=== PATIENT | male | born 1955 | race African-American/Black ===

== ENCOUNTER 2021-11-18 14:46 | Inpatient (IN) | payer SELFPAY ==
[~2021-11-18] VITALS: Ht 175.3 cm; Wt 48.5 kg
[2021-11-18] MEDS ORDERED: MIDAZOLAM HCL 2 MG/2 ML VIAL IV ONE (15:00)
[2021-11-18] MEDS ORDERED: PROPOFOL 10MG/ML 100ML 100 ML IV ONE ×2 (15:00→18:30)
[2021-11-18] MEDS ORDERED: ETOMIDATE 2MG/ML 10ML VIAL IV ONE (15:00)
[2021-11-18 15:25] LABS: BASOPHILS % 0.5 % (0.0-2.0); EOSINOPHILS % 0.2 % (0.0-5.0); HEMATOCRIT. 43.5 % (42.0-52.0); HEMOGLOBIN. 13.9 g/dL (14.0-18.0); LYMPHOCYTES % 18.3 % (20.0-50.0); MEAN CORPUSCULAR HEMOGLOBIN 32.9 pg (28.0-32.0); MEAN CORPUSCULAR VOLUME 103.2 fL (80.0-94.0); MEAN PLATELET VOLUME 7.9 fl (7.4-10.4); MONOCYTES % 11.8 % (2.0-8.0); NEUTROPHILS % 69.2 % (40.0-76.0); PLATELET 394 x1000/uL (130-400); RED BLOOD CELL COUNT 4.22 mill/uL (4.7-6.1); RED CELL DISTRIBUTION WIDTH 14.9 % (11.6-14.6)
[2021-11-18 15:27] LABS: CHLORIDE 96 mEq/L (98-107)
[2021-11-18 15:30] LABS: PROTHROMBIN TIME 10.5 sec (9.6-11.0)
[2021-11-18 15:46] LABS: CREATINE KINASE 234 IU/L (39-308); ETHANOL BLOOD < 10 mg/dL
[2021-11-18 16:15] LABS: BG BASE EXCESS -4.8 mmol/L (-2.0-2.0); BG CARBOXYHEMOGLOBIN 0.6 % (0.5-1.5); BG DEOXYHEMOGLOBIN 1.8 % (0.0-5.0); BG HCO3 ACT 21.5 mmol/L (22.0-26.0); BG METHEMOGLOBIN 0.6 % (0.0-1.5); BG OXYGEN SATURATION 98.2 % (92.0-98.5); BG PCO2 44.1 mmHg (35.0-45.0); BG PH 7.305 (7.350-7.450); BG PO2 132.8 mmHg (75.0-100.0); BG SAMPLE SITE RIGHT BRACHIAL; BG TOTAL HEMOGLOBIN 14.9 g/dL (12.0-18.0); BG VENT MODE VENT - AC
[2021-11-18 17:14] LABS: CLARITY URINE TURBID (CLEAR); COLOR URINE YELLOW (YELLOW); KETONES URINE NEGATIVE (NEGATIVE); LEUKOCYTE ESTERASE URINE NEGATIVE (NEGATIVE); NITRITE URINE NEGATIVE (NEGATIVE); OCCULT BLOOD URINE 2+ (NEGATIVE); PROTEIN URINE 3+ (NEGATIVE); UROBILINOGEN URINE 0.2 E.U./dL (0.2-1.0)
[2021-11-18] MEDS: LACTULOSE 20G/30ML UDC PO SCH ×2 (17:16→22:00)
[2021-11-18 17:33] LABS: *AMPHETAMINES SCREEN URINE NEGATIVE (NEGATIVE); *BARBITURATES SCREEN URINE NEGATIVE (NEGATIVE); *BENZODIAZEPINES SCREEN URINE PRESUMTIVE POSITIVE (NEGATIVE); *COCAINE SCREEN URINE NEGATIVE (NEGATIVE); CANNABINOID URINE SCREEN PRESUMTIVE POSITIVE (NEGATIVE); METHADONE URINE SCREEN NEGATIVE (NEGATIVE); OPIATES URINE SCREEN NEGATIVE (NEGATIVE); PHENCYCLIDINE URINE SCREEN NEGATIVE (NEGATIVE)
[2021-11-18] MEDS ORDERED: MIDAZOLAM HCL 100 MG in SODIUM CHLORIDE 0.9% 80 ML IV NR (18:00)
[2021-11-18] MEDS ORDERED: MIDAZOLAM HCL 100 MG in DEXT 5% WATER 80 ML IV ONE (18:00)
[2021-11-18] MEDS ORDERED: ACETAMINOPHEN 650MG SUPP PR STA (18:26)
[2021-11-18] MEDS ORDERED: VANCOMYCIN 1G PREMIX 200 ML IV NR (18:30)
[2021-11-18] MEDS ORDERED: VANCOMYCIN 1G PREMIX 200 ML IV ONE (18:30)
[2021-11-18] MEDS ORDERED: PROPOFOL 200MG/20ML VIAL IV PRN (18:30)
[2021-11-18] MEDS ORDERED: PIPERACILLIN/TAZ 3.375G PREMIX 50 ML IV ONE (18:30)
[2021-11-18] MEDS ORDERED: CLONIDINE 0.1MG TABLET PO PRN (21:45)
[2021-11-18] MEDS ORDERED: ONDANSETRON HCL 4MG/2ML INJ IV PRN (21:45)
[2021-11-18] MEDS ORDERED: DOCUSATE SODIUM 100MG CAPSULE PO PRN (21:45)
[2021-11-18] MEDS ORDERED: ACETAMINOPHEN 325MG TABLET PO PRN (21:45)
[2021-11-18] MEDS ORDERED: HYDROCODONE/ACETAMINOPHEN 5/325MG TABLET PO PRN (21:45)
[2021-11-18] MEDS ORDERED: CEFTRIAXONE SODIUM 1 G/VIAL IM SCH (21:55)
[2021-11-18] MEDS: SODIUM CHLORIDE 0.9% 1,000 ML IV SCH (22:00)
[2021-11-18] MEDS ORDERED: VANCOMYCIN 1GM PMX (XELLIA) 200 ML IV NR (22:00)
[2021-11-18] MEDS ORDERED: LACTULOSE 20G/30ML UDC PO SCH (22:00)
[2021-11-18] MEDS: ENOXAPARIN 40MG/0.4ML SYR SUBCUT SCH (22:01)
[2021-11-19] VITALS (78 sets, daily range): BP systolic 85–175; BP diastolic 58–132
[2021-11-19] MEDS: MORPHINE SULFATE 2 MG/ML CPJ (NOT FOR IM USE) IV PRN (03:40)
[2021-11-19] MEDS: PROPOFOL 10MG/ML 100ML 100 ML IV PRN ×4 (04:47→21:05)
[2021-11-19 05:02] LABS: BG BASE EXCESS -1.6 mmol/L (-2.0-2.0); BG CARBOXYHEMOGLOBIN 0.3 % (0.5-1.5); BG DEOXYHEMOGLOBIN 0.2 % (0.0-5.0); BG FRACTION INSPIRED OXYGEN 100; BG HCO3 ACT 22.6 mmol/L (22.0-26.0); BG METHEMOGLOBIN 0.2 % (0.0-1.5); BG OXYGEN SATURATION 99.8 % (92.0-98.5); BG OXYHEMOGLOBIN 99.3 % (94.0-97.0); BG PCO2 36.8 mmHg (35.0-45.0); BG PH 7.407 (7.350-7.450); BG PO2 479.3 mmHg (75.0-100.0); BG SAMPLE SITE RIGHT RADIAL; BG TOTAL HEMOGLOBIN 14.5 g/dL (12.0-18.0); BG VENT MODE VENT - AC
[2021-11-19] MEDS ORDERED: FENTANYL CITRATE/PF 2,500 MCG in SODIUM CHLORIDE 0.9% 200 ML IV PRN (05:30)
[2021-11-19] MEDS ORDERED: MIDAZOLAM 100MG/100ML PMX 100 ML IV PRN (05:30)
[2021-11-19 05:58] LABS: HEMATOCRIT. 42.6 % (42.0-52.0); HEMOGLOBIN. 13.9 g/dL (14.0-18.0); MEAN CORPUSCULAR HEMOGLOBIN 31.8 pg (28.0-32.0); MEAN CORPUSCULAR VOLUME 97.7 fL (80.0-94.0); MEAN PLATELET VOLUME 7.6 fl (7.4-10.4); PLATELET 298 x1000/uL (130-400); RED BLOOD CELL COUNT 4.36 mill/uL (4.7-6.1); RED CELL DISTRIBUTION WIDTH 14.4 % (11.6-14.6)
[2021-11-19 06:24] LABS: CHLORIDE 101 mEq/L (98-107)
[2021-11-19 06:28] LABS: PHOSPHORUS 5.4 mg/dL (2.5-4.9)
[2021-11-19] MEDS: LACTULOSE 20G/30ML UDC PO SCH ×3 (07:21→21:02)
[2021-11-19] MEDS: FOLIC ACID 1MG TABLET PO SCH (08:21)
[2021-11-19] MEDS ORDERED: POTASSIUM CHLORIDE 20MEQ TABLET SR PO SCH (09:00)
[2021-11-19] MEDS ORDERED: POTASSIUM CHLORIDE 20MEQ/PACKET PO SCH (10:00)
[2021-11-19] MEDS ORDERED: NALOXONE HCL 0.4MG/ML VIAL IV PRN (11:00)
[2021-11-19] MEDS ORDERED: LEVETIRACETAM 500MG PREMIX 100 ML IV SCH (12:00)
[2021-11-19] MEDS ORDERED: PROPOFOL 10MG/ML 100ML 100 ML IV PRN (12:15)
[2021-11-19] MEDS ORDERED: IPRATROPIUM/ALBUTEROL 0.5-3(2.5)MG/3ML NEB HHN PRN (12:15)
[2021-11-19 12:20] LABS: PLATELET ESTIMATE NORMAL
[2021-11-19] MEDS ORDERED: FOLIC ACID 1MG TABLET PO SCH (13:00)
[2021-11-19] MEDS ORDERED: LEVETIRACETAM 1,000 MG in SODIUM CHLORIDE 0.9% 100 ML IV SCH (13:45)
[2021-11-19] MEDS: MULTIVITAMINS,THER W-MINERALS TABLET PO SCH (13:47)
[2021-11-19] MEDS: THIAMINE HCL 100MG TABLET PO SCH (13:47)
[2021-11-19] MEDS: CHLORDIAZEPOXIDE 5 MG CAPSULE PO SCH ×2 (14:06→21:03)
[2021-11-19] MEDS: PIPERACILLIN/TAZOBACTAM 3.375 G in DEXTROSE 5% WATER 50 ML IV SCH ×2 (14:06→21:04)
[2021-11-19] MEDS: SODIUM CHLORIDE 0.9% 1,000 ML IV SCH (14:44)
[2021-11-19] MEDS ORDERED: LEVETIRACETAM 1000MG PREMIX 100 ML IV SCH (15:00)
[2021-11-19] MEDS: IPRATROPIUM/ALBUTEROL 0.5-3(2.5)MG/3ML NEB HHN SCH (20:25)
[2021-11-19] MEDS: LEVETIRACETAM 1000MG PREMIX 100 ML IV SCH (21:00)
[2021-11-19] MEDS: ENOXAPARIN 40MG/0.4ML SYR SUBCUT SCH (21:03)
[2021-11-20] VITALS (69 sets, daily range): BP systolic 85–183; BP diastolic 46–102
[2021-11-20] MEDS: IPRATROPIUM/ALBUTEROL 0.5-3(2.5)MG/3ML NEB HHN SCH ×4 (01:03→20:50)
[2021-11-20] MEDS: PROPOFOL 10MG/ML 100ML 100 ML IV PRN (03:42)
[2021-11-20] MEDS: PIPERACILLIN/TAZOBACTAM 3.375 G in DEXTROSE 5% WATER 50 ML IV SCH ×3 (05:32→21:01)
[2021-11-20] MEDS: LEVOTHYROXINE SODIUM 25MCG TABLET PO SCH (05:32)
[2021-11-20] MEDS: CHLORDIAZEPOXIDE 5 MG CAPSULE PO SCH ×3 (05:32→21:00)
[2021-11-20] MEDS: LACTULOSE 20G/30ML UDC PO SCH ×3 (05:32→21:01)
[2021-11-20 05:40] LABS: BASOPHILS % 0.5 % (0.0-2.0); EOSINOPHILS % 0.9 % (0.0-5.0); HEMATOCRIT. 37.1 % (42.0-52.0); LYMPHOCYTES % 9.5 % (20.0-50.0); MEAN CORPUSCULAR HEMOGLOBIN 31.9 pg (28.0-32.0); MEAN CORPUSCULAR VOLUME 98.4 fL (80.0-94.0); MEAN PLATELET VOLUME 8.2 fl (7.4-10.4); MONOCYTES % 7.4 % (2.0-8.0); NEUTROPHILS % 81.7 % (40.0-76.0); PLATELET 271 x1000/uL (130-400); RED BLOOD CELL COUNT 3.78 mill/uL (4.7-6.1); RED CELL DISTRIBUTION WIDTH 14.4 % (11.6-14.6)
[2021-11-20 05:41] LABS: CHLORIDE 110 mEq/L (98-107)
[2021-11-20 05:51] LABS: CREATINE KINASE 296 IU/L (39-308)
[2021-11-20] MEDS: SODIUM CHLORIDE 0.9% 1,000 ML IV SCH (06:52)
[2021-11-20 07:51] LABS: BG BASE EXCESS -1.6 mmol/L (-2.0-2.0); BG CARBOXYHEMOGLOBIN 0.3 % (0.5-1.5); BG DEOXYHEMOGLOBIN 1.3 % (0.0-5.0); BG FRACTION INSPIRED OXYGEN 40; BG HCO3 ACT 21.6 mmol/L (22.0-26.0); BG METHEMOGLOBIN 0.6 % (0.0-1.5); BG OXYGEN SATURATION 98.7 % (92.0-98.5); BG OXYHEMOGLOBIN 97.8 % (94.0-97.0); BG PCO2 32.1 mmHg (35.0-45.0); BG PH 7.446 (7.350-7.450); BG PO2 143.6 mmHg (75.0-100.0); BG SAMPLE SITE RIGHT RADIAL; BG TOTAL HEMOGLOBIN 12.7 g/dL (12.0-18.0); BG VENT MODE VENT - AC
[2021-11-20] MEDS: THIAMINE HCL 100MG TABLET PO SCH (08:08)
[2021-11-20] MEDS: MULTIVITAMINS,THER W-MINERALS TABLET PO SCH (08:08)
[2021-11-20] MEDS: LEVETIRACETAM 1000MG PREMIX 100 ML IV SCH ×2 (08:09→21:00)
[2021-11-20] MEDS: FOLIC ACID 1MG TABLET PO SCH (08:09)
[2021-11-20] MEDS ORDERED: POTASSIUM CHLORIDE 20MEQ TABLET SR PO SCH (09:45)
[2021-11-20] MEDS ORDERED: ENOXAPARIN 30MG/0.3ML SYR SUBCUT SCH (21:00)
[2021-11-21] VITALS (39 sets, daily range): BP systolic 111–177; BP diastolic 59–97
[2021-11-21] MEDS: IPRATROPIUM/ALBUTEROL 0.5-3(2.5)MG/3ML NEB HHN SCH ×2 (02:27→09:34)
[2021-11-21] MEDS: MORPHINE SULFATE 2 MG/ML CPJ (NOT FOR IM USE) IV PRN (03:21)
[2021-11-21] MEDS: PIPERACILLIN/TAZOBACTAM 3.375 G in DEXTROSE 5% WATER 50 ML IV SCH ×2 (05:41→15:32)
[2021-11-21] MEDS: LACTULOSE 20G/30ML UDC PO SCH (05:42)
[2021-11-21] MEDS: LEVOTHYROXINE SODIUM 25MCG TABLET PO SCH (05:42)
[2021-11-21] MEDS: CHLORDIAZEPOXIDE 5 MG CAPSULE PO SCH (05:42)
[2021-11-21] MEDS ORDERED: KEPP500 MT (08:47)
[2021-11-21] MEDS: LEVETIRACETAM 1000MG PREMIX 100 ML IV SCH (09:35)
[2021-11-21] MEDS: FOLIC ACID 1MG TABLET PO SCH (09:36)
[2021-11-21] MEDS: THIAMINE HCL 100MG TABLET PO SCH (09:36)
[2021-11-21] MEDS: MULTIVITAMINS,THER W-MINERALS TABLET PO SCH (09:36)
[2021-11-21 09:48] LABS: BASOPHILS % 0.8 % (0.0-2.0); EOSINOPHILS % 0.7 % (0.0-5.0); HEMATOCRIT. 31.8 % (42.0-52.0); HEMOGLOBIN. 10.6 g/dL (14.0-18.0); MEAN CORPUSCULAR HEMOGLOBIN 32.8 pg (28.0-32.0); MEAN CORPUSCULAR VOLUME 97.9 fL (80.0-94.0); MEAN PLATELET VOLUME 8.6 fl (7.4-10.4); MONOCYTES % 8.9 % (2.0-8.0); NEUTROPHILS % 79.6 % (40.0-76.0); PLATELET 253 x1000/uL (130-400); RED BLOOD CELL COUNT 3.24 mill/uL (4.7-6.1); RED CELL DISTRIBUTION WIDTH 14.3 % (11.6-14.6)
[2021-11-21 09:55] LABS: CHLORIDE 105 mEq/L (98-107)
[2021-11-21] MEDS ORDERED: NICOTINE 14MG PATCH TD SCH (11:00)
[2021-11-21] MEDS ORDERED: CHLORDIAZEPOXIDE 25MG CAPSULE PO SCH (14:00)
[2021-11-21] MEDS: SODIUM CHLORIDE 0.9% 1,000 ML IV SCH ×2 (17:15)
[2021-11-21] MEDS ORDERED: LEVETIRACETAM 500MG/5ML CUP PO SCH (21:00)
== END 2021-11-21 19:55 | disposition home or self-care (01) | DRG 53 ==
LOC: ER 14:46 → MICUSO 17:52 → SUPCPDRO 21:43 → MICUNO 11-19 04:17
PROVIDERS: ADMIT Internal Medicine Nephrology; ATTEND Internal Medicine Nephrology
PROC: 5A1945Z Respiratory Ventilation, 24-96 Consecutive Hours (ICD-10-PCS; principal; 2021-11-18)
PROC: 0BH17EZ Insertion of Endotracheal Airway into Trachea, Via Natural or Artificial Opening (ICD-10-PCS; 2021-11-18)
DX: G40.401 Other generalized epilepsy and epileptic syndromes, not intractable, with status epilepticus (principal); J96.00 Acute respiratory failure, unspecified whether with hypoxia or hypercapnia; E72.20 Disorder of urea cycle metabolism, unspecified; K72.90 Hepatic failure, unspecified without coma; E87.1 Hypo-osmolality and hyponatremia; J44.9 Chronic obstructive pulmonary disease, unspecified; E87.8 Other disorders of electrolyte and fluid balance, not elsewhere classified; I10 Essential (primary) hypertension; E87.6 Hypokalemia; J98.4 Other disorders of lung; E11.65 Type 2 diabetes mellitus with hyperglycemia; E03.9 Hypothyroidism, unspecified; F12.90 Cannabis use, unspecified, uncomplicated; Z78.1 Physical restraint status; Z86.73 Personal history of transient ischemic attack (TIA), and cerebral infarction without residual deficits
CPT/HCPCS: 31500; 36415; 36600; 70551; 71045; 76700; 80048; 80053; 80305; 80320; 81003; 82140; 82375; 82550; 82805; 82962; 83036; 83735; 84100; 84443; 84478; 84484; 85025; 92610; 94002; 94003; 94640; 97110; 97116; 97161; 97162; 99285; J0696; J1650; J1953; J2250; J2270; J2405; J2543; J2704; J3010; J3370; J7050; J7060; G0480

== ENCOUNTER 2022-12-25 12:41 | Inpatient (IN) | payer MEDICARE, MEDICAID ==
[~2022-12-25] VITALS: Ht 175.3 cm; Wt 45.5 kg
[~2022-12-25 12:41] MED LIST: KEPP500 MT
[2022-12-25] MEDS ORDERED: LEVETIRACETAM 1000MG PREMIX 100 ML IV ONE (13:00)
[2022-12-25] MEDS ORDERED: SODIUM CHLORIDE 0.9% 1,000 ML IV ONE (13:00)
[2022-12-25 14:09] LABS: BASOPHILS % 0.4 % (0.0-2.0); EOSINOPHILS % 1.2 % (0.0-5.0); LYMPHOCYTES % 10.4 % (20.0-50.0); MEAN CORPUSCULAR HEMOGLOBIN 30.6 pg (28.0-32.0); MEAN CORPUSCULAR HGB CONC 31.4 g/dL (31.0-37.0); MEAN CORPUSCULAR VOLUME 97.3 fL (80.0-94.0); MEAN PLATELET VOLUME 7.2 fl (7.4-10.4); MONOCYTES % 11.1 % (2.0-8.0); NEUTROPHILS % 76.9 % (40.0-76.0); PLATELET 257 x1000/uL (130-400); RED CELL DISTRIBUTION WIDTH 16.2 % (11.6-14.6); WHITE BLOOD COUNT 7.5 x1000/uL (4.5-11.0)
[2022-12-25 14:26] LABS: CHLORIDE 110 mEq/L (98-107); INDEX HEMOLYSI 4 (1-3); INDEX ICTERIC 1 (1-4); INDEX LIPEMIC 1 (1-3); SODIUM 138 mEq/L (136-145)
[2022-12-25 14:33] LABS: POTASSIUM 3.9 mEq/L (3.5-5.1)
[2022-12-25 14:39] LABS: ALBUMIN 3.7 g/dL (3.4-5.0); ASPARTATE AMINOTRANSFERASE 22 IU/L (15-37); BILIRUBIN TOTAL 0.4 mg/dL (0.1-1.0); CARBON DIOXIDE 19 mEq/L (21-32); CREATININE 0.6 mg/dL (0.6-1.3); ETHANOL BLOOD < 10 mg/dL (-10); GLUCOSE 73 mg/dL (70-105); PROTEIN TOTAL 6.9 g/dL (6.0-8.3); UREA NITROGEN BLOOD 10 mg/dL (7-21)
[2022-12-25 15:04] LABS: ALANINE AMINOTRANSFERASE 17 IU/L (13-61); CALCIUM 8.6 mg/dL (8.5-10.1); TROPONIN I HIGH SENSITIVITY 247 ng/L (<78)
[2022-12-25 21:55] LABS: TROPONIN I HIGH SENSITIVITY 1219 ng/L (<78)
[2022-12-25 23:55] VITALS: BP 121/89; PULSE 105; RESP 18; TEMP 97.6
[2022-12-26] VITALS (7 sets, daily range): BP systolic 101–132; BP diastolic 42–73; PULSE 63–110; RESP 18–19; TEMP 96.3–97.9
[2022-12-26] MEDS ORDERED: SIMV-43 PO (00:19)
[2022-12-26] MEDS: ASPIRIN 81MG TABLET PO SCH (08:38)
[2022-12-26] MEDS: LEVETIRACETAM 500MG TABLET PO SCH ×2 (08:38→21:06)
[2022-12-26] MEDS: ENOXAPARIN 40MG/0.4ML SYR SUBCUT SCH (08:38)
[2022-12-26] MEDS: PANTOPRAZOLE 40MG DR TABLET PO SCH (08:38)
[2022-12-26 11:39] LABS: CHLORIDE 106 mEq/L (98-107); INDEX HEMOLYSI 1 (1-3); INDEX ICTERIC 1 (1-4); INDEX LIPEMIC 1 (1-3); POTASSIUM 3.6 mEq/L (3.5-5.1); SODIUM 136 mEq/L (136-145)
[2022-12-26 11:55] LABS: ALANINE AMINOTRANSFERASE 16 IU/L (13-61); ALBUMIN 3.7 g/dL (3.4-5.0); ASPARTATE AMINOTRANSFERASE 18 IU/L (15-37); BILIRUBIN TOTAL 0.7 mg/dL (0.1-1.0); CALCIUM 9.1 mg/dL (8.5-10.1); CARBON DIOXIDE 26 mEq/L (21-32); CHOLESTEROL 145 mg/dL (<200); CREATININE 0.7 mg/dL (0.6-1.3); GLUCOSE 122 mg/dL (70-105); HDL CHOLESTEROL 102 mg/dL (40-59); LDL CHOLESTEROL 44 mg/dL (5-100); PROTEIN TOTAL 6.9 g/dL (6.0-8.3); TRIGLYCERIDE 51 mg/dL (0-150); UREA NITROGEN BLOOD 15 mg/dL (7-21)
[2022-12-26 11:57] LABS: TROPONIN I HIGH SENSITIVITY 342 ng/L (<78)
[2022-12-26] MEDS ORDERED: CLONIDINE 0.1MG TABLET PO PRN (13:00)
[2022-12-26] MEDS ORDERED: DOCUSATE SODIUM 100MG CAPSULE PO PRN (13:00)
[2022-12-26] MEDS ORDERED: ACETAMINOPHEN 325MG TABLET PO PRN ×2 (13:00)
[2022-12-26] MEDS ORDERED: ONDANSETRON HCL 4MG/2ML INJ IV PRN (13:00)
[2022-12-26] MEDS ORDERED: IPRATROPIUM/ALBUTEROL 0.5-3(2.5)MG/3ML NEB HHN PRN (13:00)
[2022-12-26 13:02] LABS: BASOPHILS % 0.8 % (0.0-2.0); EOSINOPHILS % 0.2 % (0.0-5.0); HEMOGLOBIN. 13.4 g/dL (14.0-18.0); LYMPHOCYTES % 12.7 % (20.0-50.0); MEAN CORPUSCULAR HEMOGLOBIN 29.4 pg (28.0-32.0); MEAN CORPUSCULAR HGB CONC 32.7 g/dL (31.0-37.0); MEAN PLATELET VOLUME 7.9 fl (7.4-10.4); MONOCYTES % 8.5 % (2.0-8.0); NEUTROPHILS % 77.8 % (40.0-76.0); PLATELET 359 x1000/uL (130-400); RED BLOOD CELL COUNT 4.56 mill/uL (4.7-6.1); RED CELL DISTRIBUTION WIDTH 15.2 % (11.6-14.6); WHITE BLOOD COUNT 10.8 x1000/uL (4.5-11.0)
[2022-12-26] MEDS: NITROGLYCERIN OINT 1GM/INCH UDPKT TD SCH ×2 (14:00→21:06)
[2022-12-26] MEDS ORDERED: POTASSIUM CHLORIDE 20MEQ/PACKET PO NR (14:30)
[2022-12-26 16:18] LABS: BG BASE EXCESS 3.5 mmol/L (-2.0-2.0); BG CARBOXYHEMOGLOBIN 0.6 % (0.5-1.5); BG DEOXYHEMOGLOBIN 3.2 % (0.0-5.0); BG FRACTION INSPIRED OXYGEN 21; BG HCO3 ACT 26.5 mmol/L (22.0-26.0); BG METHEMOGLOBIN 0.2 % (0.0-1.5); BG OXYGEN SATURATION 96.8 % (92.0-98.5); BG PCO2 35.2 mmHg (35.0-45.0); BG PH 7.494 (7.350-7.450); BG PO2 82.8 mmHg (75.0-100.0); BG SAMPLE SITE RIGHT BRACHIAL; BG TOTAL HEMOGLOBIN 14.4 g/dL (12.0-18.0); BG VENT MODE ROOM AIR
[2022-12-26 16:42] LABS: INDEX HEMOLYSI 1 (1-3)
[2022-12-26 16:45] LABS: AMMONIA 47 uMol/L (<32)
[2022-12-26 17:06] LABS: CREATINE KINASE MB FRACTION 1.6 ng/mL (0.5-3.6)
[2022-12-26 17:14] LABS: FOLIC ACID (FOLATE) SERUM 12.3 ng/mL (>5.38)
[2022-12-26] MEDS: ATORVASTATIN CALCIUM 20MG TABLET PO SCH (21:06)
[2022-12-27 00:49] VITALS: BP 106/70; PULSE 72; RESP 19; TEMP 97.2
[2022-12-27 04:00] VITALS: BP 95/54; PULSE 71; RESP 19; TEMP 97.9
[2022-12-27] MEDS: NITROGLYCERIN OINT 1GM/INCH UDPKT TD SCH ×3 (05:04→21:05)
[2022-12-27 08:00] VITALS: BP 103/65; PULSE 68; RESP 18; TEMP 97.7
[2022-12-27] MEDS: ASPIRIN 81MG TABLET PO SCH (08:28)
[2022-12-27] MEDS: LEVETIRACETAM 500MG TABLET PO SCH ×2 (08:29→21:05)
[2022-12-27] MEDS: ENOXAPARIN 40MG/0.4ML SYR SUBCUT SCH (08:29)
[2022-12-27] MEDS: PANTOPRAZOLE 40MG DR TABLET PO SCH (08:29)
[2022-12-27] MEDS ORDERED: LACTULOSE 20G/30ML UDC PO NR (09:45)
[2022-12-27 11:37] LABS: CLARITY URINE CLOUDY (CLEAR); COLOR URINE DARK YELLOW (YELLOW); GLUCOSE URINE NEGATIVE (NEGATIVE); KETONES URINE TRACE (NEGATIVE); LEUKOCYTE ESTERASE URINE 2+ (NEGATIVE); NITRITE URINE POSITIVE (NEGATIVE); OCCULT BLOOD URINE 2+ (NEGATIVE); PH URINE 5.5 (4.5-8.0); PROTEIN URINE NEGATIVE (NEGATIVE); SPECIFIC GRAVITY URINE 1.031 (1.005-1.030)
[2022-12-27 12:00] VITALS: BP 99/66; PULSE 72; RESP 18; TEMP 98
[2022-12-27 12:04] LABS: *AMPHETAMINES SCREEN URINE NEGATIVE (NEGATIVE); *BARBITURATES SCREEN URINE NEGATIVE (NEGATIVE); *BENZODIAZEPINES SCREEN URINE PRESUMTIVE POSITIVE (NEGATIVE); *COCAINE SCREEN URINE PRESUMTIVE POSITIVE (NEGATIVE); CANNABINOID URINE SCREEN PRESUMTIVE POSITIVE (NEGATIVE); ECSTASY MDMA SCREEN URINE NEGATIVE (NEGATIVE); METHADONE URINE SCREEN NEGATIVE (NEGATIVE); OPIATES URINE SCREEN NEGATIVE (NEGATIVE); PHENCYCLIDINE URINE SCREEN NEGATIVE (NEGATIVE)
[2022-12-27 12:05] LABS: BASOPHILS % 0.3 % (0.0-2.0); EOSINOPHILS % 0.5 % (0.0-5.0); HEMATOCRIT. 37.3 % (42.0-52.0); HEMOGLOBIN. 12.5 g/dL (14.0-18.0); LYMPHOCYTES % 19.3 % (20.0-50.0); MEAN CORPUSCULAR HEMOGLOBIN 30.3 pg (28.0-32.0); MEAN CORPUSCULAR HGB CONC 33.6 g/dL (31.0-37.0); MEAN PLATELET VOLUME 7.7 fl (7.4-10.4); MONOCYTES % 10.1 % (2.0-8.0); NEUTROPHILS % 69.8 % (40.0-76.0); PLATELET 342 x1000/uL (130-400); RED BLOOD CELL COUNT 4.14 mill/uL (4.7-6.1); RED CELL DISTRIBUTION WIDTH 14.9 % (11.6-14.6); WHITE BLOOD COUNT 7.1 x1000/uL (4.5-11.0)
[2022-12-27 12:06] LABS: BACTERIA URINE 2+; SQUAMOUS EPITHELIAL CELL URINE FEW /lpf (RARE/1+); YEAST URINE NONE SEEN
[2022-12-27 12:08] LABS: RBC URINE NONE SEEN /hpf (0-2)
[2022-12-27 12:08] LABS: INDEX HEMOLYSI 3 (1-3)
[2022-12-27 12:08] LABS: CHLORIDE 107 mEq/L (98-107); INDEX HEMOLYSI 1 (1-3); INDEX ICTERIC 1 (1-4); INDEX LIPEMIC 1 (1-3); POTASSIUM 3.9 mEq/L (3.5-5.1); SODIUM 136 mEq/L (136-145)
[2022-12-27 12:12] LABS: AMMONIA 37 uMol/L (<32)
[2022-12-27 12:13] LABS: CALCIUM 8.7 mg/dL (8.5-10.1); CARBON DIOXIDE 25 mEq/L (21-32); CREATININE 0.7 mg/dL (0.6-1.3); GLUCOSE 97 mg/dL (70-105); UREA NITROGEN BLOOD 15 mg/dL (7-21)
[2022-12-27] MEDS: FERROUS SULFATE 325MG TABLET PO SCH ×2 (12:16→17:47)
[2022-12-27 12:29] LABS: CALCIUM OXALATE CRYSTALS URINE 2+ /lpf
[2022-12-27 16:00] VITALS: BP 101/58; PULSE 80; RESP 18; TEMP 97.9
[2022-12-27 20:00] VITALS: BP 123/69; PULSE 72; RESP 19; TEMP 97.1
[2022-12-27] MEDS: ATORVASTATIN CALCIUM 20MG TABLET PO SCH (21:05)
[2022-12-28] VITALS: BP 136/41; PULSE 67; RESP 22; TEMP 96.8
[2022-12-28 04:00] VITALS: BP 114/52; PULSE 74; RESP 18; TEMP 96.8
[2022-12-28] MEDS: NITROGLYCERIN OINT 1GM/INCH UDPKT TD SCH ×2 (05:20→13:23)
[2022-12-28 08:00] VITALS: BP 122/76; PULSE 83; RESP 18; TEMP 96.8
[2022-12-28] MEDS ORDERED: FAMOTIDINE 20MG TABLET PO SCH (09:00)
[2022-12-28] MEDS: ENOXAPARIN 40MG/0.4ML SYR SUBCUT SCH (09:36)
[2022-12-28] MEDS: FERROUS SULFATE 325MG TABLET PO SCH ×2 (09:37→13:10)
[2022-12-28] MEDS: ASPIRIN 81MG TABLET PO SCH (09:37)
[2022-12-28] MEDS: LEVETIRACETAM 500MG TABLET PO SCH (09:37)
[2022-12-28] MEDS ORDERED: ATOR20TA PO (11:35)
[2022-12-28] MEDS ORDERED: KEPP500 PO (11:35)
[2022-12-28] MEDS ORDERED: ASPI-1160 PO (11:35)
[2022-12-28 12:00] VITALS: BP 112/78; PULSE 83; RESP 18; TEMP 97.3
[2022-12-28 12:35] VITALS: BP 112/78; PULSE 83; TEMP 97.3; O2SAT 98
[2022-12-29] MEDS ORDERED: FAMOTIDINE 20MG TABLET PO SCH (09:00)
== END 2022-12-28 13:30 | disposition home or self-care (01) | DRG 100 ==
LOC: ER 12:41 → MICUSO 21:07 → 7WST 12-26 00:07
PROVIDERS: ADMIT Internal Medicine; ATTEND Internal Medicine
DX: G40.909 Epilepsy, unspecified, not intractable, without status epilepticus (principal); I21.4 Non-ST elevation (NSTEMI) myocardial infarction; D64.9 Anemia, unspecified; I10 Essential (primary) hypertension; F17.210 Nicotine dependence, cigarettes, uncomplicated; F19.10 Other psychoactive substance abuse, uncomplicated; Z59.00 Homelessness unspecified; Z91.199 Patient's noncompliance with other medical treatment and regimen due to unspecified reason
CPT/HCPCS: 36415; 36600; 71045; 80048; 80053; 80061; 80305; 80320; 81003; 82140; 82375; 82550; 82553; 82607; 82728; 82746; 82805; 82962; 83036; 83540; 83550; 83735; 84484; 85025; 93005; 93306; 97162; 99285; J1650; J1953; J7030; G0480